=== PATIENT | female | born 1945 | race Caucasian/White ===

== ENCOUNTER 2017-07-29 13:52 | Emergency (ER) | payer MEDICARE | END 2017-07-29 15:09 | disposition home or self-care (01) | LOC: ERS 13:52 | DX: S00.83XA Contusion of other part of head, initial encounter (principal); I48.91 Unspecified atrial fibrillation; I11.0 Hypertensive heart disease with heart failure; I50.9 Heart failure, unspecified; K21.9 Gastro-esophageal reflux disease without esophagitis; I34.1 Nonrheumatic mitral (valve) prolapse; V03.99XA Pedestrian with other conveyance injured in collision with car, pick-up truck or van, unspecified whether traffic or nontraffic accident, initial encounter; Y92.89 Other specified places as the place of occurrence of the external cause | CPT/HCPCS: 99283 ==

== ENCOUNTER 2017-09-29 14:52 | Outpatient (CLI) | payer MEDICARE | END 2017-09-29 14:53 | disposition home or self-care (01) | LOC: BICMRI 14:52 | PROVIDERS: ATTEND Neurological Surgery | DX: M43.16 Spondylolisthesis, lumbar region (principal); M81.0 Age-related osteoporosis without current pathological fracture | CPT/HCPCS: 72100; 72148 ==

== ENCOUNTER 2018-01-11 15:16 | Inpatient (IN) | payer MEDICARE ==
[2018-01-11 15:47] LABS: #Eosinphils 0.1 thou/uL (0.0-0.7); #Lymphocytes 1.4 thou/uL (1.20-3.40); #Monocytes 0.5 thou/uL (0.11-0.59); %Basophils 0.4 % (0.0-1.0); %Eosinophils 2.5 % (0.0-10.0); %Lymphocytes 23.4 % (21.0-51.0); %Monocytes 8.2 % (0.0-10.0); %Neutrophils 65.4 % (42.0-75.0); Hemoglobin 12.9 g/dL (12.0-16.0); Mean Corpuscular HGB CONC 32.5 g/dL (32.0-36.0); Mean Corpuscular Hemoglobin 33.1 pg (27.0-31.0); Mean Platelet Volume 8.8 fL (7.4-10.4); Platelet Count 247 thou/uL (130-400); RBC Distribution Width 12.4 % (11.5-14.5); Red Blood Cell (RBC) Count 3.89 mill/uL (4.20-5.40); White Blood Cell (WBC) Count 6.1 thou/uL (4.8-10.8)
[2018-01-11 16:08] LABS: ALT (SGPT) 12 U/L (8-55); AST (SGOT) 17 U/L (5-34); Albumin 3.8 g/dL (3.4-4.8); Alkaline Phosphatase 77 U/L (40-150); Anion Gap 10 mmol/L (10-20); BUN (Urea Nitrogen) 20 mg/dL (9.8-20.1); Bilirubin, Total 0.7 mg/dL (0.2-1.2); CK (CPK) 105 U/L (29-168); Calc. Creatinine Clearance 0 mL/min (70-130); Calcium 8.9 mg/dL (7.8-10.44); Carbon Dioxide 30 mmol/L (23-31); Chloride 105 mmol/L (98-107); Estimated GFR-MDRD 64; Globulin 2.5 g/dL (2.4-3.5); Glucose 104 mg/dL (83-110); Potassium 4.8 mmol/L (3.5-5.1); Protein, Total 6.3 g/dL (6.0-8.3); Sodium 140 mmol/L (136-145)
[2018-01-11 16:12] LABS: CKMB 1.6 ng/mL (0-6.6); Troponin I Less than 0.010 ng/mL (< 0.028)
--- NOTE | 2018-01-11 18:07 | RAD ---
PORTABLE AP CHEST X-RAY: 01/11/2018 HISTORY: Dizziness. Weakness. Low blood pressure at home. COMPARISON: 04/30/2017 FINDINGS: The cardiac silhouette is magnified by projection but stable in size from the prior study. The pulmo nary vasculature is within normal limits. The lungs are clear. Mild degenerative changes are seen i n the spine. There has been no interval change from the prior exam. IMPRESSION: No acute cardiopulmonary process. POS: NANCY
[2018-01-11 20:48] VITALS: BMI 33.7
[2018-01-11] MEDS ORDERED: Meclizine HCl 25 MG TAB PO PRN (21:45)
[2018-01-11] MEDS ORDERED: Ondansetron ODT 4 MG TAB PO PRN (21:45)
[2018-01-11] MEDS ORDERED: Acetaminophen 325 MG TAB PO PRN (21:45)
[2018-01-11] MEDS ORDERED: Ondansetron HCl/PF 4 MG/2 ML Vial SLOW IVP PRN (21:45)
[2018-01-11] MEDS ORDERED: Albuterol Sulfate 1.25 MG/3 ML NEB NEB PRN (21:48)
[2018-01-11 22:07] LABS: Troponin I Less than 0.010 ng/mL (< 0.028)
[2018-01-12 01:25] LABS: Troponin I Less than 0.010 ng/mL (< 0.028)
[2018-01-12] MEDS ORDERED: Albuterol Sulfate 1.25 MG/3 ML NEB NEB PRN (07:43)
[2018-01-12] MEDS ORDERED: Non-Formulary Item 1 EACH (Albuterol Sulfate Hfa (Or) 1 PUFF) INH PRN (07:43)
[2018-01-12] MEDS ORDERED: Furosemide 40 MG TAB PO PRN (07:43)
[2018-01-12] MEDS ORDERED: Ergocalciferol 1.25 MG(50,000 UNITS) CAP PO SCH ×2 (07:45→08:00)
[2018-01-12] MEDS ORDERED: Furosemide 20 MG TAB PO PRN (07:51)
[2018-01-12] MEDS ORDERED: PROVENTIL INHALER 6.7 G (200 INHALATIONS) INH PRN (07:55)
[2018-01-12] MEDS ORDERED: Potassium Chloride 10 MEQ TAB PO SCH (08:00)
--- NOTE | 2018-01-12 08:11 | HP ---
DATE OF ADMISSION: 01/12/2018 CHIEF COMPLAINT: Lightheadedness, dizziness. HISTORY OF PRESENT ILLNESS: This is a 72-year-old female patient with a history of paroxysmal atrial fibrillation, remote history of CHF, mitral valve prolapse, followed by Dr. Harper, presented to the e mergency department with 2 weeks of on and off episodes of feeling lightheaded and dizzy. She denies any falls, no syncope. She states that the symptoms are not positional, but randomly occurring thro ughout the day. She states that she wakes up in the morning her blood pressure can be in the 140s an d 150s and then throughout the day will drop lower. She states that her son who is a RN checked her blood pressure at one time and it was 70 systolic and that is when she came to the emergency [facility] for evaluation. She denied any chest pain, shortness of breath. She states that she last saw Dr. Harper about 1 month ago and she performed a Holter monitor. She is uncertain of the results of that test. When she is in bed she is feeling much better, denies episodes of lightheadedness or dizziness while she is lying down. Denies headache, visual or hearing changes. PAST MEDICAL HISTORY: Again, paroxysmal atrial fibrillation, history of mitral valve prolapse, CHF, gastroesophageal reflux disease, hypertension, hyperlipidemia. PAST SURGICAL HISTORY: Appendectomy, laminectomy, hysterectomy, D&C x2, a cardioversion for atrial f ibrillation. SOCIAL HISTORY: She lives at home alone with her son nearby. No alcohol, no drug use. No smoking h istory. FAMILY HISTORY: Positive history of heart disease. REVIEW OF SYSTEMS: As per the history of present illness. GENERAL: She denies any recent fevers, chills or recent illness. HEENT: Denies headache, visual or hearing changes. CARDIAC: As per the history of present illness. She denies chest pain, shortness of breath, palpita tions. She states she does have a history of low heart rate as well. PULMONARY: Denies cough, shortness of breath, hemoptysis. GASTROINTESTINAL: Denies nausea, vomiting, abdominal pain, melena, hematochezia. GENITOURINARY: Denies dysuria or hematuria. NEUROLOGIC: Positive history of paresthesias in her legs. History of chronic low back pain status p ost back surgery. MUSCULOSKELETAL: She has occasional knee pains. States that her knee does give out at times. PHYSICAL EXAMINATION: VITAL SIGNS: Temperature 97.8, pulse of 50-64, respirations 14-18, blood pressure 150/65, pulse ox i s 99% on room air. GENERAL: She is awake and alert. She is pleasant, in no acute distress. HEENT: Mucosa is moist. NECK: Supple, no bruit. HEART: Bradycardic without murmurs. LUNGS: Clear bilaterally. ABDOMEN: Obese, soft, nontender, nondistended. EXTREMITIES: Trace edema, no clubbing, cyanosis. No calf tenderness, negative Homans'. LABORATORY DATA: Sodium 140, potassium 4.8, chloride 105, CO2 of 30, BUN and creatinine 20 and 0.87 with a GFR of 64. Serum glucose of 104. Liver enzymes are normal. Cardiac enzymes are negative x3. BNP was elevated at 439. White blood cell count 6.1, hemoglobin and hematocrit 12.9 and 39.7, plat elets of 247. Urinalysis is pending. A chest x-ray showed no active disease. EKG revealed bradycardia, no acute ST-T changes. ASSESSMENT AND PLAN: 1. This is a 72-year-old female patient with a history of paroxysmal atrial fibrillation, hypertensi on, mitral valve prolapse, now with episodes of dizziness and lightheadedness. Possibly due to sympt omatic bradycardia due to her heart rate going down to 40s and 50s as well as low blood pressure. Pl an; we will consult Dr. Harper for evaluation for bradycardia. Consider pacemaker placement. 2. Hypertension. We will hold her meds for low blood pressure and watch closely. 3. History of paroxysmal atrial fibrillation. We will continue Multaq at this time. May need to de crease the dosage even more as per Cardiology.
[2018-01-12] MEDS ORDERED: BIOTIN 10000 MG PO SCH ×2 (09:00)
[2018-01-12] MEDS ORDERED: Dronedarone HCl 400 MG TAB PO SCH ×4 (09:00→21:00)
[2018-01-12] MEDS ORDERED: Non-Formulary Item 1 EACH (Biotin [Biotin] 10,000 MCG) PO SCH (09:00)
[2018-01-12] MEDS ORDERED: Losartan 25 MG TAB PO SCH (09:00)
[2018-01-12] MEDS ORDERED: [Biotin] 10,000 MCG PO SCH (09:00)
[2018-01-12] MEDS ORDERED: MAGNESIUM AMINO ACID CHELATE PO SCH (09:00)
[2018-01-12] MEDS ORDERED: Furosemide 20 MG TAB PO SCH (09:00)
[2018-01-12] MEDS ORDERED: Non-Formulary Item 1 EACH (Losartan Potassium [Losartan Potassium] 50 MG) PO SCH (09:00)
[2018-01-12] MEDS ORDERED: Potassium Chloride 20 MEQ TAB PO SCH (09:00)
[2018-01-12] MEDS: Magnesium Oxide 250 MG TAB PO SCH ×2 (09:15→20:17)
[2018-01-12] MEDS: Potassium Chloride 10 MEQ TAB PO SCH (09:15)
[2018-01-12] MEDS: Losartan 25 MG TAB PO SCH (09:15)
[2018-01-12 11:18] LABS: Bilirubin Negative (Negative); Blood, Urine Negative (Negative); Clarity CLEAR (Clear); Glucose, Urine (Dipstick) Negative (Negative); Leukocyte Negative (Negative); Nitrite Negative (Negative); Protein, Urine (Dipstick) Negative (Neg-Trace); Specific Gravity, Urine 1.012 (1.002-1.036); Urobilinogen 0.2 mg/dL (0.2-1.0)
--- NOTE | 2018-01-12 15:02 | CON ---
DATE OF CONSULTATION: 01/12/2018 INDICATION FOR CONSULTATION: This is an elderly female, she is 72 years old, who complained of dizzi ness that we were asked to see her for this episode of presyncope. This very pleasant 72-year-old fe male had a history of atrial fibrillation in the past, which has been intermittent. She has been wel l controlled with Multaq; however, the last few weeks, she has been noticing some palpitations and li ghtheadedness. She did undergo an event monitor for a week. She did have some complaints of dizzine ss, but there was no correlation of the event monitor that there will be an etiology of the dizziness . Her minimal heart rate during the monitor was 47 and the maximum heart rate was 110, but the overa ll average was about 62 beats per minute and there was no indication that she has any pauses or signi ficant arrhythmia. She did have some PACs and PVCs, but otherwise uneventful monitor. While she was at home yesterday, she suddenly felt very lightheaded and dizzy. Her son came over to check her blo od pressure, at that time, she said her heart was beating very fast and erratic. He checked her bloo d pressure apparently was in the 70 systolic and she presented to the emergency room. I do not see a n EKG from the emergency room are in rhythms tracings, but there is no indication that she has had an y atrial fibrillation while in the emergency room. Since being monitored, there has also not been an y significant arrhythmias. Her blood pressure here in the hospital is 120/56, the highest was 155/70 . Heart rate here was in the 50s and 60s. There were no significant other changes and she denied an y complaints of chest pain or significant shortness of breath. She did have in the past only on echo cardiogram, a very small pericardial effusion. We will repeat the echocardiogram for evaluation. Ot herwise, she denies any significant shortness of breath or chest pain. PAST MEDICAL HISTORY: Significant for intermittent atrial fibrillation, mitral valve prolapse. She has history of gastroesophageal reflux disease. She has history of hypertension. She has a history of dyslipidemia, gastroesophageal reflux disease. She has had a laminectomy. She has had a hysterec julius, appendectomy, tubal ligation, left forearm cancer removal. She has a history of sleep apnea. She has had cardioversions in the past. She has had a retinal detachment. ALLERGIES: None. MEDICATIONS: Prior to admission included Xopenex, Voltaren, Virtussin, Augmentin, biotin, magnesium, Prilosec, Tylenol, probiotics, multivitamins, turmeric, Lasix 40 mg a day, potassium 20 mEq today. She has been cutting back on the Lasix and also the potassium, losartan 50 mg once a day and Multaq 4 00 mg she was taking half a tablet twice a day, and aspirin 325 mg a day. REVIEW OF SYSTEMS: Twelve-point review of systems unremarkable except what was noted in the history of present illness with the dizziness. PHYSICAL EXAMINATION: GENERAL: Reveals an elderly female. VITAL SIGNS: She is afebrile. Blood pressure is 120/56, heart rate is now at this time in the 50-52 and shows a sinus rhythm. Heart rate 83 beats per minute and shows a sinus rhythm. HEENT: Shows head to be normocephalic and atraumatic. Carotid pulses are present. There were no br uits. There is no JVD, the thyroids are enlarged. Oral mucosa was pink and moist. CHEST: Clear to auscultation, no rales, rhonchi, or wheezing. CARDIOVASCULAR: Exam reveals a regular rate and rhythm with normal S1 and S2. No S3 or S4. There w ere no significant murmurs, heaves, thrills, bruits or rubs. ABDOMEN: Shows obesity with positive bowel sounds. No organomegaly or masses are noted. Femoral pu lses are present. EXTREMITIES: Show no clubbing, cyanosis, or edema. She also her pedal pulses slightly decreased, bu t are present. NEUROLOGIC: She appears to be intact. LABORATORY DATA: Shows a BNP of 439, BUN is 20 with a creatinine 0.87, hemoglobin 12.9. BNP was 439 . Cardiac enzymes are negative. IMPRESSION: 1. Probable hypertensive episode associated with intermittent atrial fibrillation, I would imagine t hat she did have a short episode of atrial fibrillation according to what she is telling me, she had a very rapid heart rate and suspect she has some intermittent atrial fibrillation, which can ca use hypotension. At this time, we will increase the Multaq up to 400 mg in the morning and 200 mg at night and see whether or not she can tolerate this and hopefully this will suppress the atrial fibri llation. 2. History of hypertension. This is under good control at this time. She does not appear to be ort hostatic. 3. History of gastroesophageal reflux disease, which is also normal. 4. History of hypertension. This is normal and stable at this time. We will not make any changes. She has a CHADS score, which indicates that she needs to be on anticoagulation. However, in the pas t, she was treated with Eliquis, but had severe epistaxis and oral anticoagulation was changed to asp irin. At this time, we will continue to monitor the patient very carefully. I will obtain an echoca rdiogram to see if there has been any changes in 01/2016. She had an echocardiogram, which showed ej ection fraction of 55% to 60% with mild left ventricular hypertrophy, mild left atrial dilatation. T he aortic valve was mildly sclerotic, but was not obstructive. She had trace aortic valve regurgitat ion, at that time, she also had mild to moderate tricuspid and mitral valve regurgitation, and some t hickening of the mitral valve leaflets. to continue to follow the patient with you. I will re peat an echocardiogram. We will increase the Multaq back at least 400 mg in the morning and 200 mg i n the evening.
[2018-01-12] MEDS ORDERED: Aspirin 325 mg Enteric Coated Tablet PO SCH ×2 (21:00)
[2018-01-12] MEDS ORDERED: Non-Formulary Item 1 EACH (Omeprazole [Omeprazole] 20 MG) PO SCH (21:00)
[2018-01-13 05:02] LABS: #Eosinphils 0.2 thou/uL (0.0-0.7); #Lymphocytes 1.3 thou/uL (1.20-3.40); #Monocytes 0.5 thou/uL (0.11-0.59); #Neutrophils 3.5 thou/uL (1.40-6.50); %Basophils 0.5 % (0.0-1.0); %Lymphocytes 23.3 % (21.0-51.0); %Monocytes 9.6 % (0.0-10.0); %Neutrophils 62.6 % (42.0-75.0); Hemoglobin 11.5 g/dL (12.0-16.0); Mean Corpuscular HGB CONC 32.6 g/dL (32.0-36.0); Mean Platelet Volume 8.8 fL (7.4-10.4); Platelet Count 216 thou/uL (130-400); RBC Distribution Width 12.1 % (11.5-14.5); White Blood Cell (WBC) Count 5.6 thou/uL (4.8-10.8)
[2018-01-13 05:09] LABS: Anion Gap 9 mmol/L (10-20); BUN (Urea Nitrogen) 13 mg/dL (9.8-20.1); Calc. Creatinine Clearance 104 mL/min (70-130); Calcium 8.8 mg/dL (7.8-10.44); Carbon Dioxide 29 mmol/L (23-31); Cardiac Risk 2.6 (Less than 4.5); Chloride 107 mmol/L (98-107); Cholesterol 149 mg/dl (< 200 Desired); Estimated GFR-MDRD 76; Glucose 97 mg/dL (83-110); HDL Cholesterol 58 mg/dL (>60 Neg Risk); LDL Cholesterol, Calculated 78 mg/dL; Potassium 4.1 mmol/L (3.5-5.1); Sodium 141 mmol/L (136-145); Triglycerides 63 mg/dL (Less than 150)
[2018-01-13 08:03] VITALS: TEMP 98
--- NOTE | 2018-01-13 08:07 | PRG ---
DATE OF SERVICE: 01/13/2018 SUBJECTIVE: The patient is feeling some better. She denies chest pain, shortness of breath or palpi tations. She has not had any further episodes of dizziness or near syncope. She is tolerating medic ations. She is tolerating walking in the room without shortness of breath. Echocardiogram is pendin g. OBJECTIVE: VITAL SIGNS: Temperature 98.1, pulse of 57 to 61, respirations 16, blood pressure 126/60, pulse ox 9 4%-96% on room air. GENERAL: She is awake and alert, in no acute distress. Speech is clear. NECK: Supple, no bruits. HEART: Regular rate and rhythm. LUNGS: Clear. EXTREMITIES: With trace edema. LABORATORY DATA AND IMAGING: White blood cell count 5600, hemoglobin and hematocrit are 11.5 and 35. 4 with macrocytic indices, platelets of 216. Sodium 141, potassium 4.1, chloride 105, CO2 of 29, BUN and creatinine are 13 and 0.75 with GFR of 76, glucose of 97, calcium of 8.8. Again, cardiac enzyme s are negative x3. Total cholesterol of 149, triglycerides of 63, LDL of 78. A.m. cortisol level wa s normal at 6.4. Urinalysis was negative. Echocardiogram is pending. ASSESSMENT AND PLAN: This is a 72-year-old female patient with a history of paroxysmal atrial fibril lation, hypertension, hyperlipidemia who presented to the hospital with episodes of dizziness and adela r syncope. 1. Paroxysmal atrial fibrillation. Dr. Harper increased the Multaq to 400 mg in the morning and 200 i n the evening to try to control episodes of atrial fibrillation. 2. Hypertension. We will continue her current medication. 3. Dizziness and near syncope. Await echocardiogram, to rule out significant aortic stenosis. DISPOSITION: Possibly home with new dosage of Multaq following the echocardiogram if okay with Cardi ology.
[2018-01-13] MEDS ORDERED: Dronedarone HCl 400 MG TAB PO SCH (09:00)
[2018-01-13] MEDS: Potassium Chloride 10 MEQ TAB PO SCH (09:24)
[2018-01-13] MEDS: Losartan 25 MG TAB PO SCH (09:24)
[2018-01-13] MEDS: Magnesium Oxide 250 MG TAB PO SCH (09:24)
[2018-01-13 11:46] VITALS: BP 151/67
[2018-01-14] MEDS ORDERED: Ergocalciferol 1.25 MG(50,000 UNITS) CAP PO SCH (09:00)
== END 2018-01-13 14:26 | disposition home or self-care (01) | DRG 310 ==
LOC: ERS 15:16 → 2SW 19:26 → OBSVTOIN 01-12 07:46
PROVIDERS: ADMIT Family Medicine; ATTEND Family Medicine
DX: I48.0 Paroxysmal atrial fibrillation (principal); I50.9 Heart failure, unspecified; I34.1 Nonrheumatic mitral (valve) prolapse; K21.9 Gastro-esophageal reflux disease without esophagitis; I11.0 Hypertensive heart disease with heart failure; E78.5 Hyperlipidemia, unspecified; G89.29 Other chronic pain; Z79.82 Long term (current) use of aspirin
CPT/HCPCS: 36415; 71045; 80048; 80053; 80061; 81003; 82533; 82550; 82553; 83880; 84484; 85025; 93005; 93306; A4216

== ENCOUNTER 2018-04-27 09:17 | Outpatient (CLI) | payer MEDICARE ==
--- NOTE | 2018-04-27 14:08 | HP ---
HISTORY OF PRESENT ILLNESS: Ms. Jaclyn He is a very pleasant 73-year-old, who [facility] for evaluation of right and left lower extremity lymphedema. The patient states that she has been prescribed compression garments in the past. She states that they have been difficult to put on. She also states that even with assistance, the garments have been difficult to put on. She also reports a tourniquet effect with the compression garments. Moreover, the patient states that she has been unable to achieve the proper elevation of her right and left lower extremities for treatment of her lymphedema with her concomitant gastroesophageal reflux disease. The patient was referred to the [facility] by Dr. Ledezma on 03/19/2018. PAST MEDICAL HISTORY: 1. Paroxysmal atrial fibrillation. 2. Hypertension. 3. Congestive heart failure. 4. Mitral valve prolapse. 5. History of obstructive sleep apnea. 6. Gastroesophageal reflux disease. PAST SURGICAL HISTORY: 1. Appendectomy. 2. Laminectomy. 3. Hysterectomy. 4. D and C x2. 5. Tubal ligation. 6. Left forearm carcinoma removal. MEDICATIONS: 1. Lasix. 2. Potassium. 3. Losartan. 4. Multaq. 5. Magnesium. 6. Vitamin D. 7. Biotin. 8. Centrum Silver. 9. Turmeric. 10. Probiotics. 11. Aspirin 325 mg. ALLERGIES: NO KNOWN DIAGNOSED ALLERGIES. SOCIAL HISTORY: Social history is negative for tobacco or EtOH use. FAMILY HISTORY: Family history is significant for diabetes mellitus. The patient states that her mother, father, brother, and sister were all diagnosed with diabetes mellitus. Family history is also significant for coronary artery disease. The patient states that her mother and father were both diagnosed with coronary artery disease. PHYSICAL EXAMINATION: VITAL SIGNS: Temperature 97.5, pulse 69, respirations 19, and blood pressure 141/81. GENERAL: A 73-year-old female, sitting on chair in examination room, in no acute distress. HEENT: Normocephalic and atraumatic. NECK: No nuchal rigidity. CHEST: Clear to auscultation. CV: Regular rate and rhythm. ABDOMEN: Soft. EXTREMITIES: Lymphedema of the right and left lower extremities is present on exam today. No open wounds are present over the right or left lower extremities. No cellulitis of the right or left lower extremity is present. No maceration of the skin of the right or left lower extremity is present. A dorsalis pedis pulse is palpable on the right and on the left. Numerous varicosities are present over the right and left lower extremities on today's exam. Circumferences of the right lower extremity at the foot, ankle, calf, and knee are as follows: 23 cm, 28 cm, 44 cm, and 47 cm. Circumferences of the left lower extremity at the foot, ankle, calf, and knee are: 23.5 cm, 27.5 cm, 41 cm, and 47 cm. NEURO: Grossly nonfocal. ASSESSMENT AND PLAN: 1. Lymphedema tarda. Arrangements will be made for the initiation of in-home lymphedema therapy. I have asked the patient to return to clinic on 05/21/2018. At this time, arrangements will continue for the acquisition of a lymphedema pump. 2. 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 3. Paroxysmal atrial fibrillation. 4. Hypertension. 5. Congestive heart failure. 6. Mitral valve prolapse. 7. History of obstructive sleep apnea. 8. Gastroesophageal reflux disease. Job ID: [id number]
== END 2018-04-27 09:18 | disposition home or self-care (01) ==
LOC: WCC 09:17
PROVIDERS: ATTEND Family Medicine
DX: I89.0 Lymphedema, not elsewhere classified (principal); I83.93 Asymptomatic varicose veins of bilateral lower extremities; I87.2 Venous insufficiency (chronic) (peripheral); I48.0 Paroxysmal atrial fibrillation; I11.0 Hypertensive heart disease with heart failure; I34.1 Nonrheumatic mitral (valve) prolapse; I50.9 Heart failure, unspecified; K21.9 Gastro-esophageal reflux disease without esophagitis; Z87.09 Personal history of other diseases of the respiratory system
CPT/HCPCS: 97139; G0463; 99203

== ENCOUNTER 2018-10-15 01:32 | Outpatient (CLI) | payer MEDICARE ==
[2018-10-15 10:45] LABS: Hemoglobin 13.2 g/dL (12.0-16.0); Mean Corpuscular HGB CONC 32.4 g/dL (32.0-36.0); Mean Corpuscular Hemoglobin 32.2 pg (27.0-31.0); Mean Corpuscular Volume 99.5 fL (78.0-98.0); Mean Platelet Volume 9.1 fL (7.4-10.4); Platelet Count 218 thou/uL (130-400); White Blood Cell (WBC) Count 6.5 thou/uL (4.8-10.8)
--- NOTE | 2018-10-15 10:54 | RAD ---
PA AND LATERAL VIEWS CHEST: Date: 10/15/18 HISTORY: Preoperative evaluation. FINDINGS: The heart size is normal. The aorta is tortuous. The lungs are expanded without lobar consolidation, pneumothoraces, or pleural effusions. There are degenerative changes in the spine. IMPRESSION: No radiographic evidence of acute cardiopulmonary process. POS: OFF
[2018-10-15 10:56] LABS: PTT 31.9 SEC (22.9-36.1)
[2018-10-15 10:57] LABS: Prothrombin Time 13.2 SEC (12.0-14.7)
[2018-10-15 10:59] LABS: Bilirubin Negative (Negative); Blood, Urine Negative (Negative); Glucose, Urine (Dipstick) Negative (Negative); Leukocyte Small (Negative); Nitrite Negative (Negative); Protein, Urine (Dipstick) Negative (Neg-Trace); Specific Gravity, Urine 1.015 (1.005-1.030); Urobilinogen 0.2 mg/dL (0.2-1.0); pH, Urine 6.5 (5.0-9.0)
[2018-10-15 11:02] LABS: Clarity Clear (Clear)
[2018-10-15 11:07] LABS: Anion Gap 14 mmol/L (10-20); BUN (Urea Nitrogen) 18 mg/dL (9.8-20.1); Calc. Creatinine Clearance 0 mL/min (70-130); Calcium 9.4 mg/dL (7.8-10.44); Carbon Dioxide 27 mmol/L (23-31); Chloride 102 mmol/L (98-107); Estimated GFR-MDRD 72; Glucose 90 mg/dL (83-110); Potassium 3.9 mmol/L (3.5-5.1); Sodium 139 mmol/L (136-145)
[2018-10-15 11:10] LABS: RBC/HPF 0-3 HPF (0-3); Squamous Epithelial 0-3 HPF (0-3)
[2018-10-15 11:11] LABS: Bacteria/HPF None Seen HPF (None Seen); Hyaline Casts/LPF NONE SEEN LPF (0-3 Hyaline)
== END 2018-10-15 01:33 | disposition home or self-care (01) ==
LOC: LABBT 01:32
PROVIDERS: ATTEND Orthopaedic Surgery
DX: Z01.818 Encounter for other preprocedural examination (principal); M75.101 Unspecified rotator cuff tear or rupture of right shoulder, not specified as traumatic
CPT/HCPCS: 71046; 80048; 81001; 85027; 85610; 85730; 87081; 93005; 93010

== ENCOUNTER 2018-10-15 09:00 | Inpatient (IN) | payer MEDICARE ==
[2018-10-15 09:19] VITALS: BMI 38.0
[2018-10-20] MEDS ORDERED: Fentanyl 100 MCG/2 ML VIAL ONE ×3 (05:59→09:40)
[2018-10-20] MEDS ORDERED: Vancomycin HCl 1.5 GM in Sodium Chloride 0.9% 250 ML 300 ML IVPB SCH ×3 (06:00→22:00)
[2018-10-20] MEDS ORDERED: Sodium Chloride 0.9% 100 ML ONE (06:18)
[2018-10-20] MEDS ORDERED: Tranexamic Acid 1,000 MG/10 ML VIAL ONE (06:18)
[2018-10-20] MEDS ORDERED: Midazolam HCl 2 mg/2 ml Vial ONE (06:32)
[2018-10-20] MEDS ORDERED: traMADol HCl 50 MG TAB PO PRN ×4 (07:14→09:15)
[2018-10-20] MEDS ORDERED: HYDROcodone/Acetaminophen 10/325 mg Tablet PO PRN ×2 (07:14)
[2018-10-20] MEDS ORDERED: Ropivacaine 0.2% 550 ML 550 ML NERVE BLCK SCH (07:14)
[2018-10-20] MEDS ORDERED: Ondansetron PF 4 MG/2 ML Vial IVP PRN ×2 (07:14→09:15)
[2018-10-20] MEDS ORDERED: Zolpidem Tartrate 5 MG TAB PO PRN (07:14)
[2018-10-20] MEDS ORDERED: Promethazine HCl 25 MG/ML VIAL IM PRN ×2 (07:14→09:19)
[2018-10-20] MEDS ORDERED: Fentanyl 100 MCG/2 ML VIAL IV PRN (07:15)
[2018-10-20] MEDS ORDERED: EPINEPHrine 1 MG/10 ML Abboject SYRINGE ONE (07:32)
[2018-10-20] MEDS ORDERED: Phenylephrine HCL 10 MG/ML VIAL ONE (08:01)
[2018-10-20] MEDS ORDERED: SUGAMMADEX SODIUM 200 MG/2 ML VIAL ONE (08:41)
[2018-10-20] MEDS ORDERED: Methocarbamol 1 GM/10 ML VIAL SLOW IVP PRN (09:15)
[2018-10-20] MEDS ORDERED: Ondansetron ODT 4 MG TAB PO PRN (09:15)
[2018-10-20] MEDS ORDERED: Bisacodyl 10 MG SUPP PR PRN (09:15)
[2018-10-20] MEDS ORDERED: Methocarbamol 500 MG TAB PO PRN (09:15)
[2018-10-20] MEDS ORDERED: Ondansetron HCl/PF 4 MG/2 ML Vial IVP PRN (09:19)
[2018-10-20] MEDS ORDERED: Promethazine HCl 25 MG/ML VIAL SLOW IVP PRN (09:19)
[2018-10-20] MEDS ORDERED: Ropivacaine 0.5% HCl/PF (150 MG/30 ML VIAL) ONE (10:11)
[2018-10-20] MEDS ORDERED: Ropivacaine 0.2% HCl/PF (40 MG/20 ML VIAL) ONE (10:11)
[2018-10-20] MEDS ORDERED: ePHEDrine 50 MG/ML VIAL ONE (10:18)
[2018-10-20] MEDS ORDERED: Ondansetron PF 4 MG/2 ML Vial ONE (10:18)
[2018-10-20] MEDS ORDERED: Ketorolac Tromethamine 30 MG/ML VIAL ONE (10:18)
[2018-10-20] MEDS ORDERED: Lidocaine 1% PF 5 ML VIAL ONE (10:18)
[2018-10-20] MEDS ORDERED: Rocuronium Bromide 10 MG/ML (10ML VIAL) ONE (10:18)
[2018-10-20] MEDS ORDERED: Glycopyrrolate 0.2 MG/ML 5 ML SYRINGE ONE ×2 (10:18)
[2018-10-20] MEDS ORDERED: Metoclopramide HCl 10 MG/2 ML VIAL ONE (10:18)
[2018-10-20] MEDS ORDERED: PROPOFOL 200 MG/20 ML VIAL ONE (10:18)
[2018-10-20] MEDS ORDERED: Morphine 2 MG/ML SYRINGE SLOW IVP PRN (11:06)
[2018-10-20] MEDS: Ketorolac Tromethamine 30 MG/ML VIAL IVP SCH ×3 (12:56→23:09)
--- NOTE | 2018-10-20 14:42 | OP ---
DATE OF PROCEDURE: 10/20/2018 PREOPERATIVE DIAGNOSES: Right full-thickness rotator cuff tear supraspinatus with greater than 50% atrophy, biceps tendinopathy. POSTOPERATIVE DIAGNOSES: Right full-thickness rotator cuff tear supraspinatus with greater than 50% atrophy, biceps tendinopathy. PROCEDURES PERFORMED: 1. Right reverse total shoulder arthroplasty. 2. Biceps tenodesis. GERMAN TUTOR: Juan F Damon PA-C ANESTHESIOLOGIST: Peyton Carlisle MD ANESTHESIA: The patient received general endotracheal intubation with interscalene block. ESTIMATED BLOOD LOSS: 50 mL. TOURNIQUET TIME: None. IMPLANTS: A Tornier 25 mm baseplate, a 36 x 25 mm standard base Glenosphere, 3AB flex stem, a high offset tray, and a 36 x 6 mm poly, two nonlocking and two locking screws were placed. ANTIBIOTICS: Vancomycin 1 g, Ancef 2 g, and TXA 1 g. COMPLICATIONS: None. HISTORY OF PRESENT ILLNESS: Ms. He is a 73-year-old female, who utilizes a walker to get around. The patient has severe pain in right shoulder cuff tear arthropathy of right upper extremity. She also has bilateral knee osteoarthritis, which limits her mobility. The patient is desired to have repair of right shoulder because of the severe pain in the shoulder. I discussed the risks and benefits of the surgery to include, pain, scar, bleeding, infection, damage to vital structures, decreased range of motion and strength, nonunion, malunion, fracture above or below the stems, and loss of life or limb. The patient understands the risks and benefits of the surgery to include and she elected to proceed. DESCRIPTION OF PROCEDURE: A time-out was performed designating the patient's right upper extremity as the operative site based on site, consents, and marking. After completion time-out procedure note, a deltopectoral interval was made, came down through the fat, came and down found the patient's cephalic vein. We dissected in between the deltoid and pectoralis major coming down into right on top of the patient's conjoined. We made a slit and placed our retractor under the conjoined tendon, kicked down the subscapularis, followed the biceps through the interval and cut it , then took down capsule down. We exposed the head and dislocated the head. A complete rupture of the supraspinatus, infraspinatus, and essentially bald head with some teres attached posteriorly. We made our articular surface cut in an angle, removed the osteophytes, broached up to 3, placed our manhole cover over the stem and put the shoulder in position, exposure of the glenoid with our Bankart anteriorly and [place] posteriorly posteriorly. We did a 360 degree release of the patient's labrum to expose the entire glenoid. She had a very small glenoid as well as the humeral head. A 25 baseplate fit right at the inferior rim essentially right at the edge of the Glenosphere, I placed a center screw. I then tilted the head down, angled it down to get the inferior cartilage smilely face inferiorly. I removed the excess debris and cleaned up the face. We placed a 25 degree baseplate, placed two anterior and posterior nonlocking screws and superior inferior locking screws, had good fixation completion. We then placed our 36 x 25 mm standard Glenosphere in place, dislocated the head, placed our trial sheath, put it at the 12 o'clock position as far as much lateral offset as possible high offset tray. I liked the overall alignment and position of the stem, and position with respect to the glenoid. I then dislocated the head. I drilled a hole, passed a suture around the stem, passed them into position, tamped in position. I then reduced it with a 3AB flex, high offset, and 36 x 6 mm poly. I sewed the subscapularis back with #5 Ethibond with a W- stitch. I then tied this knot. I took the biceps tenodesis, remnant tissue of the subscapularis as well as tied it at the superior margin of the pectoralis. We then washed and closed. We closed the deltopectoral interval with 0 Vicryl, subcu with 2-0 yaya. The patient will be admitted. She is likely going to need transfer to prison because of her knee. She has difficulty mobilizing. She relies on a walker to get around and therefore, she is going to be in abduction pillow. She could potentially use a cane for short distances, but will need max assist. Therefore , for a short period of time while her shoulder is healing, will need prison. Job ID: [id number] [facility]
[2018-10-20] MEDS: CEFAZOLIN 2 GM in Premix Bag 1 BAG IVPB SCH ×2 (15:40→21:50)
[2018-10-20] MEDS: Sodium Chloride 0.9% 1,000 ML IV SCH (15:41)
[2018-10-20] MEDS ORDERED: PROVENTIL INHALER 6.7 G (200 INHALATIONS) INH PRN (21:37)
[2018-10-20] MEDS ORDERED: Furosemide 20 MG TAB PO PRN (21:41)
[2018-10-20] MEDS: Famotidine 20 MG TAB PO SCH (21:51)
[2018-10-20] MEDS ORDERED: Dronedarone HCl 400 MG TAB PO SCH (22:00)
[2018-10-21] MEDS: Ketorolac Tromethamine 30 MG/ML VIAL IVP SCH ×3 (05:51→18:13)
[2018-10-21] MEDS: Sodium Chloride 0.9% 1,000 ML IV SCH ×2 (05:55→17:40)
--- NOTE | 2018-10-21 08:57 | RAD ---
TWO VIEWS OF THE RIGHT SHOULDER: DATE: 10/21/2018. COMPARISON: None. HISTORY: Status post shoulder arthroplasty. FINDINGS: There is a right shoulder arthroplasty in place with no evidence for acute fracture/dislocation or quintana rdware failure. Cutaneous yaya are noted. There is moderate degenerative change of the acromiocl avicular joint. IMPRESSION: Status post right total shoulder arthroplasty. POS: [facility]
[2018-10-21] MEDS: Magnesium Oxide 250 MG TAB PO SCH (09:06)
[2018-10-21] MEDS: Vitamin E 400 UNITS CAP PO SCH (09:06)
[2018-10-21] MEDS: Famotidine 20 MG TAB PO SCH ×2 (09:07→20:21)
[2018-10-21] MEDS: Potassium Chloride 20 MEQ TAB PO SCH (09:07)
[2018-10-21] MEDS: Dronedarone HCl 400 MG TAB PO SCH ×2 (09:07→20:21)
[2018-10-21] MEDS: Losartan 25 MG TAB PO SCH (09:07)
[2018-10-21] MEDS: Aspirin 325 mg Enteric Coated Tablet PO SCH (09:07)
[2018-10-21] MEDS: Ergocalciferol 1.25 MG(50,000 UNITS) CAP PO SCH (17:39)
[2018-10-21] MEDS: Stress 600 With Zinc 1 TAB PO SCH (17:39)
[2018-10-22] MEDS: Ketorolac Tromethamine 30 MG/ML VIAL IVP SCH ×2 (00:34→05:36)
[2018-10-22] MEDS: Sodium Chloride 0.9% 1,000 ML IV SCH ×2 (00:35→23:00)
[2018-10-22] MEDS: Aspirin 325 mg Enteric Coated Tablet PO SCH (09:20)
[2018-10-22] MEDS: Losartan 25 MG TAB PO SCH (09:21)
[2018-10-22] MEDS: Famotidine 20 MG TAB PO SCH ×2 (09:21→20:49)
[2018-10-22] MEDS: Dronedarone HCl 400 MG TAB PO SCH ×2 (09:21→20:48)
[2018-10-22] MEDS: Polyethylene Glycol 3350 17 GM Packet PO SCH ×2 (09:21→20:49)
[2018-10-22] MEDS: Vitamin E 400 UNITS CAP PO SCH (09:23)
[2018-10-22] MEDS: Potassium Chloride 20 MEQ TAB PO SCH (09:23)
[2018-10-22] MEDS: Senokot S 8.6-50 MG TAB PO SCH ×2 (09:23→20:49)
[2018-10-22] MEDS: Magnesium Oxide 250 MG TAB PO SCH (09:23)
[2018-10-22] MEDS: Stress 600 With Zinc 1 TAB PO SCH (09:24)
--- NOTE | 2018-10-22 09:24 | PRG ---
DATE OF SERVICE: 10/22/2018 SUBJECTIVE: Jaclyn is a 73-year-old white female, who is postop day 2 from a right reverse total shoulder arthroplasty by Dr. Peterson. Her placement is pending and I think she is trying to be transferred to Campus here locally. Otherwise, her pain is relatively well controlled. OBJECTIVE: VITAL SIGNS: Temperature 98.4; pulse 70; respiratory rate is 18, unlabored, and blood pressure is 154/74. NEUROLOGIC: She is alert, oriented, appropriate, grossly nonfocal, responsive with examiner, sitting up, moving around her room with her sling intact. There is no strike through at the incision. She has a dense block, but has good digital excursion and some dull sensation at the thumb. She can hays pinch. IMPRESSION: This is a 73-year-old white female, postop day 2, right total shoulder arthroplasty, placement pending. PLAN: Continue current care. We will discharge when facility is ready to receive. Job ID: [id number]
[2018-10-22] MEDS ORDERED: cloNIDine 0.1 MG TAB PO PRN (12:56)
--- NOTE | 2018-10-22 14:36 | CON ---
DATE OF CONSULTATION: 10/22/2018 HISTORY OF PRESENT ILLNESS: A 73-year-old female, status post replacement of right shoulder. She has a history of atrial fibrillation and hypertension. It was noted she had elevated blood pressure today of 172/73. No other medical problems are noted. She denies chest pain, shortness of breath, nausea, vomiting, or diarrhea. She has been taking her blood pressure medicine as prescribed. Otherwise, no other medical complaints are noted. It is noted she does have a history of atrial fibrillation. She is currently on Multaq. She has also takes losartan for blood pressure. Otherwise, she notes no other cardiac history. No stents or bypasses. No previous history of CVA. She has been known evidently been on blood thinner medicines in the past, but has some type of bleeding issues, though she was not on any other anticoagulation other than aspirin. ALLERGIES: SHE HAS NO KNOWN ALLERGIES. CURRENT MEDICATIONS: Reviewed. PAST MEDICAL HISTORY: Significant for hypertension, atrial fibrillation, and above-noted right shoulder replacement. PHYSICAL EXAMINATION: GENERAL: She is alert, active, does not appear in any distress. VITAL SIGNS: Temperature 98.7, pulse 74, O2 saturations 94%, and BP 172/73. Otherwise, she is normotensive throughout her other blood pressure checks. HEENT: Unremarkable. NECK: Supple. Full range of motion. No masses. LUNGS: Reveal bilateral breath sounds. HEART: Reveals a regular rate and rhythm without murmur, gallops, or rubs. ABDOMEN: Soft and nontender. Bowel sounds are present and active. There is no hepatosplenomegaly noted. EXTREMITIES: No evidence of clubbing, edema, or cyanosis noted at this time. IMPRESSION: This is a 73-year-old female status post right shoulder replacement. She has had one elevated blood pressure reading. PLAN: We will provide with p.r.n. clonidine. She is to maintain all of her other medications. Job ID: [id number]
--- NOTE | 2018-10-23 07:53 | PRG ---
DATE OF SERVICE: 10/23/2018 SUBJECTIVE: The patient is doing well. She is postop day #3 from right reverse total shoulder arthroplasty and biceps tenodesis. She states that she is doing well. Pain is well controlled. Blood pressure is better controlled as well. Denies chest pain. Denies shortness of breath. Denies nausea and vomiting. Tolerating physical therapy. Awaiting placement for rehab. OBJECTIVE: VITAL SIGNS: Temperature 98.3, pulse of 71, respirations 16, blood pressure 148/78, pulse ox is 93% to 95% on room air. GENERAL: She is awake and alert. No acute distress. Speech is clear. HEART: Regular rate and rhythm. LUNGS: Clear. EXTREMITIES: There is no edema. Right shoulder with brace in place. LABORATORY DATA: No labs to review. ASSESSMENT AND PLAN: This is a 73-year-old female patient with a history of hypertension, atrial fibrillation, status post right shoulder arthroplasty. 1. Hypertension. We will continue current medications including Cozaar and clonidine p.r.n. 2. Atrial fibrillation, rate controlled on Multaq. 3. Shoulder repair. Continue plan per Orthopedics. 4. Bowel regimen will continue. Encourage activity and increase fluid intake. Continue Senokot and MiraLAX p.r.n. 5. Disposition to rehab when bed is available. Job ID: [id number]
[2018-10-23] MEDS: Dronedarone HCl 400 MG TAB PO SCH ×2 (09:18→21:34)
[2018-10-23] MEDS: Senokot S 8.6-50 MG TAB PO SCH ×2 (09:18→21:34)
[2018-10-23] MEDS: Magnesium Oxide 250 MG TAB PO SCH (09:19)
[2018-10-23] MEDS: Vitamin E 400 UNITS CAP PO SCH (09:19)
[2018-10-23] MEDS: Polyethylene Glycol 3350 17 GM Packet PO SCH ×2 (09:19→21:34)
[2018-10-23] MEDS: Aspirin 325 mg Enteric Coated Tablet PO SCH (09:19)
[2018-10-23] MEDS: Famotidine 20 MG TAB PO SCH ×2 (09:19→21:35)
[2018-10-23] MEDS: Stress 600 With Zinc 1 TAB PO SCH (09:19)
[2018-10-23] MEDS: Potassium Chloride 20 MEQ TAB PO SCH (09:19)
[2018-10-23] MEDS: Losartan 25 MG TAB PO SCH (09:19)
[2018-10-23] MEDS: Sodium Chloride 0.9% 1,000 ML IV SCH (13:15)
[2018-10-24] MEDS: Sodium Chloride 0.9% 1,000 ML IV SCH ×2 (03:04→20:26)
[2018-10-24] MEDS: HYDROcodone/Acetaminophen 10/325 mg Tablet PO PRN ×5 (04:15→23:22)
[2018-10-24] MEDS ORDERED: Preparation H Ointment 28 GM TUBE TOP PRN (05:08)
[2018-10-24] MEDS ORDERED: Lidocaine 2% Jelly 5 ML TUBE TOP PRN (05:09)
[2018-10-24] MEDS: Losartan 25 MG TAB PO SCH (08:12)
[2018-10-24] MEDS: Polyethylene Glycol 3350 17 GM Packet PO SCH ×2 (08:12→20:28)
[2018-10-24] MEDS: Senokot S 8.6-50 MG TAB PO SCH ×2 (08:13→20:29)
[2018-10-24] MEDS: Famotidine 20 MG TAB PO SCH ×2 (08:13→20:29)
[2018-10-24] MEDS: Stress 600 With Zinc 1 TAB PO SCH (08:13)
[2018-10-24] MEDS: Aspirin 325 mg Enteric Coated Tablet PO SCH (08:13)
[2018-10-24] MEDS: Dronedarone HCl 400 MG TAB PO SCH ×2 (08:13→20:30)
[2018-10-24] MEDS: Vitamin E 400 UNITS CAP PO SCH (08:13)
[2018-10-24] MEDS: Magnesium Oxide 250 MG TAB PO SCH (08:13)
[2018-10-24] MEDS: Potassium Chloride 20 MEQ TAB PO SCH (08:13)
[2018-10-24] MEDS: Acetaminophen 325 MG TAB PO PRN ×3 (13:12→23:23)
--- NOTE | 2018-10-24 14:53 | PRG ---
DATE OF SERVICE: 10/24/2018 SUBJECTIVE: Jaclyn is a 73-year-old white female, who is postop day 4 from a right reverse total shoulder arthroplasty. She is still awaiting placement. I believe she is going to be going to [facility]. OBJECTIVE: VITAL SIGNS: Temperature , pulse 78, respiratory rate 16 and nonlabored, O2 saturation is 94% on room air, blood pressure is 131/81. GENERAL: She is alert and oriented to person, place, time, situation, grossly nonfocal. Appropriate with examiner. EXTREMITIES: Visual inspection of the right upper extremity demonstrates her dressing to be dry. There is no strike through. She is neurovascularly intact in the right upper extremity. Sling is intact. IMPRESSION: A 73-year-old female, postoperative day 4, right total shoulder arthroplasty. PLAN: Continue with current management. Transfer is pending, probably Friday. Job ID: [id number]
[2018-10-24] MEDS: diphenhydrAMINE 50 MG CAP PO PRN (23:24)
[2018-10-25] MEDS: HYDROcodone/Acetaminophen 10/325 mg Tablet PO PRN ×3 (06:33→17:49)
[2018-10-25] MEDS: Polyethylene Glycol 3350 17 GM Packet PO SCH ×2 (08:42→20:18)
[2018-10-25] MEDS: Dronedarone HCl 400 MG TAB PO SCH ×2 (08:45→20:17)
[2018-10-25] MEDS: Aspirin 325 mg Enteric Coated Tablet PO SCH (08:45)
[2018-10-25] MEDS: Potassium Chloride 20 MEQ TAB PO SCH (08:45)
[2018-10-25] MEDS: Senokot S 8.6-50 MG TAB PO SCH ×2 (08:45→20:18)
[2018-10-25] MEDS: Vitamin E 400 UNITS CAP PO SCH (08:45)
[2018-10-25] MEDS: Famotidine 20 MG TAB PO SCH ×2 (08:46→20:18)
[2018-10-25] MEDS: Losartan 25 MG TAB PO SCH (08:46)
[2018-10-25] MEDS: Magnesium Oxide 250 MG TAB PO SCH (08:46)
[2018-10-25] MEDS: Ergocalciferol 1.25 MG(50,000 UNITS) CAP PO SCH (08:48)
[2018-10-25] MEDS: Stress 600 With Zinc 1 TAB PO SCH (08:48)
--- NOTE | 2018-10-25 11:05 | PRG ---
DATE OF SERVICE: 10/25/2018 SUBJECTIVE: Jaclyn is a 73-year-old female, who is postop day 5 from a reverse right total shoulder arthroplasty. She is doing relatively well. She is getting around better. Her pain is better controlled as well. She has been able to ambulate in and out of bed, but requires assistance. OBJECTIVE: VITAL SIGNS: Temperature is 98.1, pulse 60, respiratory rate 16 and nonlabored, O2 saturation 96% on room air, and blood pressure 139/62. GENERAL: She is alert and oriented to person, place, time, and situation. Grossly nonfocal. Appropriate response with examiner. She is neurovascularly intact in the right upper extremity with good full digital excursion and hays pinch. IMPRESSION: A 73-year-old female postop day 5, right total shoulder arthroplasty, doing well. PLAN: Continue current care. Placement for skilled versus inpatient rehab still pending. Job ID: [id number]
[2018-10-25] MEDS: Sodium Chloride 0.9% 1,000 ML IV SCH (14:40)
[2018-10-26] MEDS: HYDROcodone/Acetaminophen 10/325 mg Tablet PO PRN ×4 (02:59→20:33)
[2018-10-26] MEDS: Sodium Chloride 0.9% 1,000 ML IV SCH ×2 (04:08→19:16)
[2018-10-26] MEDS: diphenhydrAMINE 50 MG CAP PO PRN ×2 (05:19→20:36)
[2018-10-26] MEDS: Aspirin 325 mg Enteric Coated Tablet PO SCH (08:32)
[2018-10-26] MEDS: Dronedarone HCl 400 MG TAB PO SCH ×2 (08:32→20:32)
[2018-10-26] MEDS: Magnesium Oxide 250 MG TAB PO SCH (08:32)
[2018-10-26] MEDS: Senokot S 8.6-50 MG TAB PO SCH ×2 (08:32→20:33)
[2018-10-26] MEDS: Vitamin E 400 UNITS CAP PO SCH (08:33)
[2018-10-26] MEDS: Potassium Chloride 20 MEQ TAB PO SCH (08:33)
[2018-10-26] MEDS: Famotidine 20 MG TAB PO SCH ×2 (08:33→20:33)
[2018-10-26] MEDS: Losartan 25 MG TAB PO SCH (08:33)
[2018-10-26] MEDS: Stress 600 With Zinc 1 TAB PO SCH (08:34)
[2018-10-26] MEDS: Polyethylene Glycol 3350 17 GM Packet PO SCH ×2 (08:36→20:34)
[2018-10-27] MEDS: HYDROcodone/Acetaminophen 10/325 mg Tablet PO PRN ×2 (01:20→09:05)
[2018-10-27 08:02] VITALS: BP 155/82; TEMP 98
[2018-10-27] MEDS: Dronedarone HCl 400 MG TAB PO SCH (08:55)
[2018-10-27] MEDS: Losartan 25 MG TAB PO SCH (08:55)
[2018-10-27] MEDS: Aspirin 325 mg Enteric Coated Tablet PO SCH (08:56)
[2018-10-27] MEDS: Vitamin E 400 UNITS CAP PO SCH (08:56)
[2018-10-27] MEDS: Famotidine 20 MG TAB PO SCH (08:56)
[2018-10-27] MEDS: Senokot S 8.6-50 MG TAB PO SCH (08:56)
[2018-10-27] MEDS: Magnesium Oxide 250 MG TAB PO SCH (08:57)
[2018-10-27] MEDS: Potassium Chloride 20 MEQ TAB PO SCH (08:57)
[2018-10-27] MEDS: Polyethylene Glycol 3350 17 GM Packet PO SCH (08:57)
[2018-10-27] MEDS: Stress 600 With Zinc 1 TAB PO SCH (09:52)
--- NOTE | 2018-10-28 13:45 | DIS ---
DATE OF ADMISSION: 10/20/2018 DATE OF DISCHARGE: 10/27/2018 This is Juan F Damon PA-C dictating a report for Aidan Peterson MD. 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 POSTOPERATIVE DIAGNOSIS: Right full-thickness rotator cuff tear supraspinatus with greater than 50% atrophy and biceps tendinopathy. PROCEDURES PERFORMED: The patient underwent a: 1. Right reverse total shoulder arthroplasty. 2. Biceps tenodesis. HOSPITAL STAY: Unremarkable. The patient's prolonged stay as she was waiting for rehab versus skilled, but she had no postoperative complications. She was seen by her PCP, Dr. Kalyan Larsen and is followed by their group during her stay, but she had really no issues. DISCHARGE CONDITION: Good/stable. [facility] FOLLOWUP: Followup would be in 10 to 14 days, sooner if there are problems or concerns. DISCHARGE MEDICATIONS: Discharge medications were given with usage instructions. Job ID: [id number]
== END 2018-10-27 10:32 | DRG 483 ==
LOC: SJJU 10-20 05:31 → SURG B 10-20 10:21
PROVIDERS: ADMIT Orthopaedic Surgery; ATTEND Orthopaedic Surgery
PROC: 0RRJ00Z Replacement of Right Shoulder Joint with Reverse Ball and Socket Synthetic Substitute, Open Approach (ICD-10-PCS; principal; 2018-10-20)
DX: M75.121 Complete rotator cuff tear or rupture of right shoulder, not specified as traumatic (principal); I48.91 Unspecified atrial fibrillation; I10 Essential (primary) hypertension; M75.21 Bicipital tendinitis, right shoulder; M17.0 Bilateral primary osteoarthritis of knee; Z79.01 Long term (current) use of anticoagulants
CPT/HCPCS: A4306; J0171; J0690; J1885; J2001; J2250; J2370; J2405; J2704; J2765; J2795; J3010; J3370; J3490; J7050; Q0163